=== PATIENT | male | born 1950 ===

== ENCOUNTER 2019-07-24 12:36 | Outpatient (CLI) | payer OTHER ==
[~2019-07-24] VITALS: Ht 162.6 cm; Wt 79.8 kg
== END 2019-07-24 12:56 | disposition home or self-care (01) ==
LOC: OFIC 805 12:36
DX: J31.0 Chronic rhinitis (principal); J34.2 Deviated nasal septum; H61.21 Impacted cerumen, right ear; H90.3 Sensorineural hearing loss, bilateral